=== PATIENT | male | born 1935 | race Caucasian/White ===

== ENCOUNTER 2017-01-23 17:45 | Inpatient (IN) | payer OTHER ==
[~2017-01-23] VITALS: Ht 177.8 cm; Wt 89.0 kg
[~2017-01-23 17:45] MED LIST: ACETAMINOPHEN500 M5 PO; ANTI-DIARRHEAL2 M1 PO; ARICEPT10 MG PO; ATENOLOL25 MG PO; BUSPAR15 MG PO; CALCIUM 600 +1 EA11 PO; CIPRO500 MG PO; COLACE100 MG PO; FERROUS SULFAT325 MG PO; FINASTERIDE5 MG PO; FLAGYL500 MG PO; FLOMAX0.4 MG PO; FLORA-Q CAPSUL1 EACH PO; Flomax PO; HIPREX1 GM PO; K-DUR20 MEQ PO; KEFLEX500 MG PO; LASIX40 MG PO; LEVAQUIN750 MG PO; LORAZEPAM0.5 MG PO; LOVENOX40 MG/0.4 SC; Lasix PO; MAXAPAP325 MG PO; MICRO-K10 MEQ PO; NAMENDA5 MG PO; OYSTER SHELL 21 EACH PO; PRINIVIL10 MG PO; PROTONIX40 MG PO; QUESTRAN4 GM/PACKE PO; SEROQUEL12.5 MG PO; SEROQUEL50 MG PO; SERTRALINE HCL100 MG PO; SERTRALINE HCL25 MG PO; SIMETHICONE80 MG PO; STOOL SOFTENER100 MG PO; TAMSULOSIN HCL0.4 MG PO; TYLENOL REGULA325 MG PO; Tylenol Regular Stre PO; Xifaxan PO; ZESTRIL,PRINIVI10 M1 PO; Zoloft PO
[2017-01-23 18:40] LABS: EOSINOPHIL (%) 2.4 % (0-5); EOSINOPHIL COUNT 0.4 K/uL (0-0.3); HEMATOCRIT 38.2 % (38.0-50.0); IMMATURE GRANULOCYTE (%) 0.9 % (0.0-0.7); IMMATURE GRANULOCYTE COUNT 0.2 K/uL; LYMPHOCYTE COUNT 1.3 K/uL (1.0-2.8); MCH 26.3 PG (29.0-34.0); MCHC 29.6 G/DL (30.0-36.0); MEAN PLAT.VOLUME 9.2 uM^3 (9.0-12.4); MONOCYTE (%) 6.8 % (3-12); MONOCYTE COUNT 1.2 K/uL (0-0.8); NEUTROPHIL (%) 81.9 % (45-76); PLATELET COUNT 268 K/uL (156-360); RBC DIS.WIDTH-CV 14.4 % (11.8-14.6); RBC DIS.WIDTH-SD 46.4 % (39-53); RED BLOOD COUNT 4.29 M/uL (4.00-5.50)
[2017-01-23 18:52] LABS: CHLORIDE 104 mEq/L (99-109); POTASSIUM 4.1 mEq/L (3.7-5.4); SODIUM 142 mEq/L (136-147)
[2017-01-23 18:54] LABS: GLUCOSE 105 mg/dL (70-99)
[2017-01-23 18:55] LABS: ANION GAP 10 MEQ/L (2-14)
[2017-01-23 18:56] LABS: TOTAL BILIRUBIN 0.3 mg/dL (0.0-1.0)
[2017-01-23 18:58] LABS: ALKALINE PHOSPHATASE 61 IU/L (3-129); GFR ESTIMATE (CALCULATED) 52 mL/min/
[2017-01-23 18:59] LABS: UREA NITROGEN (BUN) 41 mg/dL (9-23)
[2017-01-23 19:00] LABS: TROP-I INTERPRETATION NEGATIVE; TROPONIN-I < 0.01 ng/mL (0.0-0.30)
[2017-01-23 19:58] LABS: ADD MIUA? YES; BILIRUBIN NEGATIVE; BLOOD SMALL; GLUCOSE (STRIP) NEGATIVE; KETONES NEGATIVE; LEUKOCYTES LARGE; NITRITE NEGATIVE; PROTEIN (STRIP) 100; UROBILINOGEN 0.2 MG/DL (0.2-1.0)
[2017-01-23 20:32] LABS: BACTERIA 1+ /HPF; COLOR AMBER ((YELLOW)); EPITHELIAL CELLS RARE /HPF; MUCUS NONE SEEN /LPF; RED BLOOD CELLS NONE SEEN /HPF (0-5); UCUL ADDED? NO; UNCLASSIFIED CRYSTALS 2+ /HPF; WHITE BLOOD CELLS 40-50 /HPF (0-5); WHITE BLOOD CELLS CLUMP MANY /HPF (0-5)
[2017-01-23] MEDS ORDERED: NAMENDA10 MG PO (21:20)
[2017-01-23] MEDS ORDERED: DEPAKOTE250 MG PO (21:20)
[2017-01-23] MEDS ORDERED: DUONEB 2.5-0.5 M3 ML AEROSOL (21:26)
[2017-01-24 04:31] VITALS: BP 118/55
[2017-01-24 04:48] LABS: MCH 26.5 PG (29.0-34.0); MCV 88.5 FL (86-99); MEAN PLAT.VOLUME 9.1 uM^3 (9.0-12.4); PLATELET COUNT 246 K/uL (156-360); RBC DIS.WIDTH-CV 14.3 % (11.8-14.6); RBC DIS.WIDTH-SD 45.7 % (39-53); RED BLOOD COUNT 3.73 M/uL (4.00-5.50); WHITE BLOOD COUNT 16.3 K/uL (4.1-10.2)
[2017-01-24 05:10] LABS: CHLORIDE 106 mEq/L (99-109); POTASSIUM 3.9 mEq/L (3.7-5.4); SODIUM 141 mEq/L (136-147)
[2017-01-24 05:11] LABS: GLUCOSE 86 mg/dL (70-99)
[2017-01-24 05:13] LABS: ANION GAP 9 MEQ/L (2-14)
[2017-01-24 05:15] LABS: GFR ESTIMATE (CALCULATED) > 59 mL/min/
[2017-01-24 05:16] LABS: UREA NITROGEN (BUN) 37 mg/dL (9-23)
[2017-01-24 07:25] VITALS: BP 150/78
[2017-01-24 12:13] VITALS: BP 115/67
[2017-01-24 16:24] VITALS: BP 141/76
[2017-01-24 19:30] VITALS: BP 134/62
[2017-01-24 23:35] VITALS: BP 127/70
[2017-01-25 04:13] VITALS: BP 118/60
[2017-01-25 05:46] LABS: EOSINOPHIL (%) 1.3 % (0-5); EOSINOPHIL COUNT 0.2 K/uL (0-0.3); HEMATOCRIT 31.6 % (38.0-50.0); IMMATURE GRANULOCYTE (%) 0.9 % (0.0-0.7); IMMATURE GRANULOCYTE COUNT 0.1 K/uL; INSTRUMENT ABS NEUTROPHIL CT 12.3 K/uL; LYMPHOCYTE COUNT 0.8 K/uL (1.0-2.8); MCH 26.5 PG (29.0-34.0); MCHC 30.4 G/DL (30.0-36.0); MCV 87.3 FL (86-99); MEAN PLAT.VOLUME 9.4 uM^3 (9.0-12.4); MONOCYTE (%) 9.5 % (3-12); MONOCYTE COUNT 1.4 K/uL (0-0.8); NEUTROPHIL (%) 82.6 % (45-76); NEUTROPHIL COUNT 12.3 K/uL (1.8-6.4); PLATELET COUNT 210 K/uL (156-360); RBC DIS.WIDTH-CV 14.2 % (11.8-14.6); RBC DIS.WIDTH-SD 45.1 % (39-53); RED BLOOD COUNT 3.62 M/uL (4.00-5.50); WHITE BLOOD COUNT 14.9 K/uL (4.1-10.2)
[2017-01-25 06:04] LABS: ANION GAP 9 MEQ/L (2-14); CHLORIDE 104 MEQ/L (99-109); GFR ESTIMATE (CALCULATED) > 59 mL/min/; GLUCOSE 100 mg/dL (70-99); POTASSIUM 3.6 MEQ/L (3.7-5.4); SAMPLE HEMOLYSIS CHECK 0; SAMPLE ICTERIC CHECK 0; SAMPLE LIPEMIA CHECK 0; SODIUM 137 MEQ/L (136-147); UREA NITROGEN (BUN) 26 mg/dL (9-23)
[2017-01-25 07:24] VITALS: BP 114/58
[2017-01-25 11:14] VITALS: BP 110/55
[2017-01-25 15:43] VITALS: BP 135/61
[2017-01-26 00:34] VITALS: BP 112/61
[2017-01-26 04:00] VITALS: BP 115/56
[2017-01-26 07:11] LABS: POINT-OF-CARE METER ID UU14149397
[2017-01-26 07:48] VITALS: BP 102/60
[2017-01-26 08:24] VITALS: BP 90/52
[2017-01-26 15:30] VITALS: BP 102/55
[2017-01-27 00:23] VITALS: BP 127/60
[2017-01-27 07:25] VITALS: BP 118/61
[2017-01-27] MEDS ORDERED: BACTRIM,SEPT1 TABLET PO (14:41)
[2017-01-27] MEDS ORDERED: QUETIAPINE FUMA25 MG PO (14:42)
== END 2017-01-27 17:18 | DRG 682 ==
LOC: EME → EDBD 17:45 → 3EAST 22:54 → EDOF 22:54 → 3EAST 01-24 00:14
PROVIDERS: Emergency Medicine; Internal Medicine
DX: N17.9 Acute kidney failure, unspecified (principal); N39.0 Urinary tract infection, site not specified; G93.41 Metabolic encephalopathy; S52.041D Displaced fracture of coronoid process of right ulna, subsequent encounter for closed fracture with routine healing; I25.10 Atherosclerotic heart disease of native coronary artery without angina pectoris; N40.0 Benign prostatic hyperplasia without lower urinary tract symptoms; I12.9 Hypertensive chronic kidney disease with stage 1 through stage 4 chronic kidney disease, or unspecified chronic kidney disease; N18.9 Chronic kidney disease, unspecified; F02.80 Dementia in other diseases classified elsewhere, unspecified severity, without behavioral disturbance, psychotic disturbance, mood disturbance, and anxiety; I95.9 Hypotension, unspecified; W19.XXXA Unspecified fall, initial encounter; D72.829 Elevated white blood cell count, unspecified; S09.90XA Unspecified injury of head, initial encounter; Y92.129 Unspecified place in nursing home as the place of occurrence of the external cause; Y99.9 Unspecified external cause status; Z87.891 Personal history of nicotine dependence; Z88.0 Allergy status to penicillin
CPT/HCPCS: 70450; 71020; 73080; 73090; 80048; 80053; 81003; 82948; 83605; 84484; 85025; 85027; 87040; 87077; 87086; 87186; 93005; 99281; 99285; J0744; J7030